=== PATIENT | female | born 1995 | race Caucasian/White ===

== ENCOUNTER 2019-08-13 12:46 | Outpatient (REF) | payer BC, SELFPAY ==
[2019-08-13 22:14] LABS: Calculated LDL 98 mg/dL; Cholesterol 175 mg/dL (50-200); HDL Cholesterol 60 mg/dL (40-60); Triglyceride 86 mg/dL (30-150)
== END 2019-08-13 13:06 ==
LOC: NCHCN 12:46
PROVIDERS: PCP Family Medicine; Visit Provider Registered Nurse
DX: Z00.00 Encounter for general adult medical examination without abnormal findings (principal); E66.3 Overweight
CPT/HCPCS: 80061

== ENCOUNTER 2020-09-01 14:03 | Outpatient (REF) | payer BC, SELFPAY ==
[2020-09-01 22:15] LABS: HCT 43.4 % (36.0-46.0); MCH 30.6 pg (27.0-33.0); MCHC 34.6 % (32.0-36.0); MCV 88.6 fL (80-95); MPV 9.3 fL (8.0-11.0); Platelet Count 370 10^3/uL (130-400); RDW 12.1 % (11.7-14.6); RDW-SD 39.3 fL; WBC 6.48 10^3/uL (4.4-10.8)
[2020-09-01 22:47] LABS: TSH 1.73 uIU/mL (0.36-3.74)
== END 2020-09-01 14:23 ==
LOC: NCHCN 14:03
PROVIDERS: PCP Family Medicine; Visit Provider Registered Nurse
DX: Z83.3 Family history of diabetes mellitus (principal); R00.2 Palpitations; E66.3 Overweight
CPT/HCPCS: 85027; 83036; 84443

== ENCOUNTER 2022-09-06 17:47 | Outpatient (REF) | payer BC, SELFPAY ==
[2022-09-06 20:35] LABS: HCT 43.6 % (36.0-46.0); HGB 14.9 g/dL (11.2-15.7); MCH 30.2 pg (27.0-33.0); MCHC 34.2 % (32.0-36.0); MCV 88 fL (80-95); MPV 8.7 fL (8.0-11.0); Platelet Count 383 10^3/uL (130-400); RBC 4.93 10^6/uL (3.93-5.22); RDW 11.9 % (11.7-14.6); RDW-SD 38.2 fL; WBC 9.72 10^3/uL (4.4-10.8)
[2022-09-06 20:42] LABS: ALT 23 U/L (14-59); AST 18 U/L (15-37); Albumin 4.5 g/dL (3.4-5.0); Alkaline Phosphatase 71 U/L (46-116); Anion Gap 7.4 mmol/L (3-11); BUN 13 mg/dL (7-18); Bilirubin, Total 0.6 mg/dL (0.2-1.0); CO2 29.6 mmol/L (21.0-32.0); CREATININE 0.7 mg/dL (0.55-1.02); Calcium 10.2 mg/dL (8.5-10.1); Chloride 102 mmol/L (98-107); Estimated GFR 119.99 (mL/min/1.73m2); Glucose 84 mg/dL (74-106); Potassium 3.9 mmol/L (3.5-5.1); Sodium 139 mmol/L (136-145); Total Protein 8.1 g/dL (6.4-8.2)
== END 2022-09-06 17:48 | disposition home or self-care (01) ==
LOC: LBN 17:47
PROVIDERS: PCP Family Medicine; Visit Provider Physician Assistant
DX: R10.9 Unspecified abdominal pain (principal)
CPT/HCPCS: 80053; 85027

== ENCOUNTER 2023-07-05 13:15 | Outpatient (REF) | payer BC, SELFPAY ==
[2023-07-05 15:27] LABS: Anion Gap 7.8 mmol/L (3-11); BUN 14 mg/dL (7-18); CO2 28.2 mmol/L (21.0-32.0); CREATININE 0.6 mg/dL (0.55-1.02); Calcium 9.4 mg/dL (8.5-10.1); Calculated LDL 115 mg/dL (<100); Chloride 102 mmol/L (98-107); Cholesterol 191 mg/dL (<200); Estimated GFR 123.76 (mL/min/1.73m2); Glucose 80 mg/dL (74-106); HDL Cholesterol 51 mg/dL (40-60); Potassium 4.4 mmol/L (3.5-5.1); Sodium 138 mmol/L (136-145); TSH (W/Ref FT4) 1.52 uIU/mL (0.36-3.74); Triglyceride 128 mg/dL (<150)
== END 2023-07-05 13:16 | disposition home or self-care (01) ==
LOC: NCHCN 13:15
PROVIDERS: PCP Family Medicine; Visit Provider Family Medicine
DX: R00.2 Palpitations (principal); R53.83 Other fatigue; R79.89 Other specified abnormal findings of blood chemistry
CPT/HCPCS: 80048; 80061; 84443

== ENCOUNTER 2024-08-26 14:05 | Outpatient (REF) | payer BC, SELFPAY ==
--- NOTE | 2024-08-26 08:00 | PAPFT_PTH ---
PATIENT: Herminia Medley LOC: [facility]#:[id number] AGE/SX: 29/F ROOM: RE08/26/[address]: Lilian Berry : 1995 BED: DIS: 08/26/2024 SPEC #: [id number] RECD: 08/26/24 17:47 STATUS: AVILA REQ #: [id number] NABIL: 08/26/24 08:[address]: Lilian Berry DEPT: [facility] Cytology RECD BY: Philomena Dominguez ENTERED: 08/26/24 17:47 SP TYPE: PAPFT OTHR DR: Shanika Alves Tissues: 1 - CX/ENDOCX FOR PAP SMEARS Procedures: PAP THIN PREP/[facility] Screening HPV DNA PROBE Comments: [id number] (HPV 16 & 18/45)
[2024-08-26 15:16] LABS: ESR 9 mm/hr (0-20)
[2024-08-26 15:17] LABS: Abs Immature Grans 0.01 10^3/uL (0.0-0.06); Absolute Basophil Count 0.05 10^3/uL (0.0-0.2); Absolute Eosinophil Count 0.26 10^3/uL (0.0-0.7); Absolute Lymphocyte Count 2.21 10^3/uL (1.2-3.4); Absolute Neutrophil Count 4.33 10^3/uL (1.2-6.7); Basophils % 0.7 %; Eosinophils % 3.6 %; HCT 43.9 % (36.0-46.0); HGB 14.7 g/dL (11.2-15.7); Immature Grans % 0.1 %; Lymphocytes % 30.4 %; MCH 29.9 pg (27.0-33.0); MCHC 33.5 % (32.0-36.0); MCV 89 fL (80-95); MPV 8.9 fL (8.0-11.0); Monocytes % 5.5 %; Neutrophils % 59.7 %; Platelet Count 398 10^3/uL (130-400); RBC 4.92 10^6/uL (3.93-5.22); RDW 12.5 % (11.7-14.6); RDW-SD 41.1 fL; WBC 7.26 10^3/uL (4.4-10.8)
[2024-08-26 15:56] LABS: Anion Gap 10.1 mmol/L (3-11); BUN 13 mg/dL (7-18); CO2 27.9 mmol/L (21.0-32.0); CREATININE 0.7 mg/dL (0.55-1.02); Calcium 9.4 mg/dL (8.5-10.1); Chloride 104 mmol/L (98-107); Estimated GFR 118.51 (mL/min/1.73m2); Glucose 81 mg/dL (74-106); Potassium 4.2 mmol/L (3.5-5.1); Sodium 142 mmol/L (136-145)
[2024-08-26 15:58] LABS: C-Reactive Protein < 0.50 mg/dL (<or=0.5)
[2024-08-26 22:36] LABS: Rheumatoid Factor <8.6 IU/mL (<12.0)
[2024-08-27 10:05] LABS: Cyclic Citrullinated Peptide <2.5 U/mL (<5.0)
[2024-08-27 13:35] LABS: ANA Interpretation Negative (Negative)
== END 2024-08-26 14:06 | disposition home or self-care (01) ==
LOC: NCHCN 14:05
PROVIDERS: PCP Family Medicine; Visit Provider Family Medicine
DX: H15.102 Unspecified episcleritis, left eye (principal); Z12.4 Encounter for screening for malignant neoplasm of cervix
CPT/HCPCS: 80048; 85652; 86200; 88142; 85025; 86038; 86140; 86431; 87624

== ENCOUNTER 2024-11-27 10:19 | Outpatient (CLI) | payer BC, SELFPAY ==
--- NOTE | 2024-11-27 08:30 | DI.RAD_ITS ---
Exam(s) XR WRIST LT COMPLETE EXAM: XR WRIST LT COMPLETE CLINICAL HISTORY: radial wrist pain. TECHNIQUE: 2D digital imaging was performed. COMPARISON: No exams were available for comparison FINDINGS: 3 views No evidence of acute fracture or dislocation nor significant ulnar vary. Bone density normal. No os seous lesions. No erosions. Scaphoid and scapholunate distance are normal. First carpometacarpal j oint appears unremarkable. No abnormal soft tissue calcifications IMPRESSION: No significant radiograph findings on these three views of the left wrist. DATA REPOSITORY: RADIATION DOSE DELIVERED:
== END 2024-11-27 10:20 | disposition home or self-care (01) ==
LOC: DIORS 10:20
PROVIDERS: PCP Family Medicine; Visit Provider Physician Assistant
DX: M25.532 Pain in left wrist (principal)
CPT/HCPCS: 73110

== ENCOUNTER 2024-12-19 00:03 | Outpatient (CLI) | payer BC, SELFPAY ==
--- NOTE | 2024-12-19 07:00 | DI.MRI_ITS ---
Exam(s) MR UPPER JOINT LT WO EXAM: MR UPPER JOINT LT WO CLINICAL HISTORY: lt wrist pain,m25.532,radial styloid tenosynovitis,m65.4. TECHNIQUE: Multiplanar multisequence MRI was performed. COMPARISON: Plain films 27 November 2024 FINDINGS: BONES: There is no fracture or contusion pattern. JOINTS: The radiocarpal joint is unremarkable. The carpal joints are unremarkable. TENDONS: Flexors: Unremarkable. Extensors: There is fluid around the extensor pollicis brevis tendon and adductor pollicis longus ten don. There is some intermediate signal in the extensor pollicis brevis at the level of the radial st yloid, consistent with tendinosis. MUSCLES: Unremarkable. MEDIAN NERVE: Unremarkable on this noncontrast examination. SOFT TISSUES: Unremarkable. LIGAMENTS: Unremarkable. TRIANGULAR FIBROCARTILAGE: Unremarkable. OTHER: IMPRESSION: Tendinosis involving the extensor pollicis brevis tendon near the level of the radial styloid. DATA REPOSITORY:
== END 2024-12-19 00:23 ==
LOC: DI 00:04
PROVIDERS: PCP Family Medicine; Visit Provider Student in an Organized Health Care Education/Training Program
DX: M65.4 Radial styloid tenosynovitis [de Quervain] (principal); M25.532 Pain in left wrist
CPT/HCPCS: 73221

== ENCOUNTER 2025-02-11 13:52 | Day surgery (SDC) | payer BC, SELFPAY ==
[2025-02-11 13:55] VITALS: BP 136/96; PULSE 79; RESP 16; TEMP 36.2; O2SAT 99
[2025-02-11] MEDS: Celecoxib 200 MG CAP 400 MG PO (14:15)
[2025-02-11] MEDS: Acetaminophen 500 MG TAB 1000 MG PO (14:16)
[2025-02-11] MEDS: Lactated Ringers 1,000 ML 80 ML IV (14:29)
--- NOTE | 2025-02-11 14:44 | W.PREOPHP ---
Assessment and Plan Assessment and plan (1) De Quervain's tenosynovitis, left: Status: Acute Assessment and plan: Tanvi is a 30-year-old female who has de Quervain's tenosynovitis by the left side. She has failed nonoperative options and is here today for first extensor compartment release. I reviewed the details of the surgery with her. I discussed the risk to include bleeding, infection, pain, stiffness, continued symptoms, damage to nerves and vessels, damage to muscle tendons, tendon subluxation, need for repeat procedures. Despite these risk, she elects to proceed. History of Present Illness History of Present Illness Chief Complaint: Left DeQuervain's Tenosynovitis Narrative: Tanvi is a 30-year-old female who has ongoing de Quervain's tenosynovitis by the left hand. She is trialed a host of nonoperative options but these have failed and thus she is here today for her first extensor compartment release. She denies any new medical issues. She denies any chest pain or shortness of breath. No recent illness. Review of Systems All systems reviewed & are unremarkable except as noted in HPI and below PFSH All Active Problems De Quervain's tenosynovitis, left (Acute) ADHD (Acute) Episcleritis (Acute) Anxiety disorder (Acute) Medical History Family history of hypertension Family history of diabetes mellitus Major depression Surgical History Hx of wisdom tooth extraction Social History Smoking/Tobacco Use Status: Never Smoking risk assessment performed?: Yes Alcohol Intake: current Alcohol Intake frequency: holidays/special occasions only Drug use: Never Substance use type: does not use Housing: apartment Do you feel safe at home: Yes Do you feel safe in your relationship?: Yes Meds Allergies and Home Medications Allergies Allergy/AdvReac Type Severity Reaction Status Date / Time No Known Allergies Allergy Verified 02/11/25 14:13 Home Medications ?Medication ?Instructions ?Recorded ?Confirmed ?Type dextroamphetamine-amphetamine 5 mg 5 mg PO DAILY 09/23/24 02/11/25 History tablet dextroamphetamine-amphetamine ER 10 mg PO DAILY 09/23/24 02/11/25 History 10 mg 24hr capsule,extend release (Adderall XR) escitalopram oxalate 20 mg tablet 20 mg PO DAILY 09/23/24 02/11/25 History levonorgestrel 21 mcg/24 hr (up to 1 device intrauterine ONCE 09/23/24 02/11/25 History 8 years) 52 mg intrauterine device (Mirena) acetaminophen 500 mg tablet 500 mg PO TID #90 tabs 02/11/25 Rx hydrocodone 5 mg-acetaminophen 325 1 tab PO Q6H PRN pain #4 tabs 02/11/25 Rx mg tablet ibuprofen 600 mg tablet 600 mg PO TID PRN pain #90 tabs 02/11/25 Rx Exam Const General: cooperative, healthy appearing, comfortable and no acute distress Resp Effort & Inspection: normal respiratory effort Auscultation: clear to auscultation bilaterally Cardio Rate: regular rate Rhythm: regular rhythm Results Last Vital Signs Temp 36.2 C L 02/11/25 13:55 Pulse 79 02/11/25 13:55 Resp 16 02/11/25 13:55 BP 136/96 H 02/11/25 13:55 Pulse Ox 99 02/11/25 13:55
--- NOTE | 2025-02-11 15:12 | W.PM.DSUDISC ---
Date of service: 02/11/25 Discharge Plan Disposition Patient Disposition: Home Condition: Good Discharge Details Reason For Visit: De Quervain's Release L Attending Provider: Tomasz Rodriguez Primary Care Provider: Lilian Berry Home Meds and New Rx's Prescriptions: New hydrocodone-acetaminophen 5-325 mg tablet 1 tab PO Q6H PRN (Reason: pain) Qty: 4 0RF acetaminophen 500 mg tablet 500 mg PO TID Qty: 90 0RF ibuprofen 600 mg tablet 600 mg PO TID PRN (Reason: pain) Qty: 90 0RF Continued dextroamphetamine-amphetamine [Adderall XR] 10 mg capsule,extended release 24hr 10 mg PO DAILY dextroamphetamine-amphetamine 5 mg tablet 5 mg PO DAILY escitalopram oxalate 20 mg tablet 20 mg PO DAILY Mirena 21 mcg/24hr (up to 8 yrs) 52 mg intrauterine device 1 device intrauterine ONCE Rx Instructions: as a single dose Discharge Instructions Additional Instructions: Ella's Discharge Instructions Activity: You should keep the hand elevated as much as possible for the first few days. You may use the other fingers as tolerated but avoid trying to do too much too soon. You may perform light activities with the splint in place. Dressing/Cast: Your splint should stay in place at all times. Do NOT get it wet. You may loosen the MILLICENT wrap if you feel it is too tight and then rewrap more loosely. Medications: - You should take Tylenol and Ibuprofen for baseline pain control. - You have Hydrocodone for breakthrough pain. - You may apply ice over the thumb. Follow-up: 7-10 days Referrals: Tomasz Rodriguez MD [ [facility] STAFF PHYSICIAN] - Activity:: Elevate Remove Dressings/Wound Care:: Do Not Remove Shower/Bathe:: Cover Diet:: As Tolerated Discharge Orders Discharge Orders: Discharge Order (Routine); Ordered 02/11/25 Ordered By: David Weston DS: Diagnosis Discharge Diagnosis (1) De Quervain's tenosynovitis, left: Status: Acute
--- NOTE | 2025-02-11 16:36 | W.ANESPRE ---
General Info Date of Service Date Performed: 02/11/25 Height: 5 ft 7 in Weight: 79.4 kg Body Mass Index (BMI): 27.3 Surgical Procedure: Operation Date: 02/11/25 15:55 Proposed Procedure Side Surgeon p Wrist Dequervains Release Left Tomasz Rodriguez MD Meds Allergies and Home Medications Allergies Allergy/AdvReac Type Severity Reaction Status Date / Time No Known Allergies Allergy Verified 02/11/25 14:13 Home Medication ?Medication ?Instructions ?Recorded dextroamphetamine-amphetamine 5 mg 5 mg PO DAILY 09/23/24 tablet dextroamphetamine-amphetamine ER 10 mg PO DAILY 09/23/24 10 mg 24hr capsule,extend release (Adderall XR) escitalopram oxalate 20 mg tablet 20 mg PO DAILY 09/23/24 levonorgestrel 21 mcg/24 hr (up to 1 device intrauterine ONCE 09/23/24 8 years) 52 mg intrauterine device (Mirena) acetaminophen 500 mg tablet 500 mg PO TID #90 tabs 02/11/25 hydrocodone 5 mg-acetaminophen 325 1 tab PO Q6H PRN pain #4 tabs 02/11/25 mg tablet ibuprofen 600 mg tablet 600 mg PO TID PRN pain #90 tabs 02/11/25 Current Visit Medications: Current Medications Generic Name Dose Route Start Last Admin Trade Name Freq PRN Reason Stop Dose Admin Acetaminophen 1,000 mg 02/11/25 06:00 02/11/25 14:16 Acetaminophen 500 Mg Tab PO 02/11/25 23:59 1,000 mg PREOP CORTEZ Administration Acetaminophen 650 mg 02/11/25 15:11 Acetaminophen 325 Mg Tab PO 03/13/25 15:10 Q4H PRN PRN Hydrocodone Bitart/Acetaminophen 0 tab 02/11/25 15:11 Hydrocodone 5/Acetaminophen 325 Tab PO 03/13/25 15:10 Q3H PRN PRN Pain Celecoxib 400 mg 02/11/25 06:00 02/11/25 14:15 Celecoxib 200 Mg Cap PO 02/11/25 23:59 400 mg PREOP CORTEZ Administration Ringer's Solution 1,000 mls @ 80 mls/hr 02/11/25 06:00 02/11/25 14:29 IV 02/11/25 23:59 80 mls/hr INFUSION CORTEZ Administration Cefazolin Sodium/Dextrose 2 gm in 50 mls @ 100 mls/hr 02/11/25 06:00 Ancef Duplex IVPB 02/11/25 23:59 PREOP CORTEZ IV Miscellaneous Supplies 1 each 02/11/25 06:00 Iv Access IV 02/11/25 23:59 DIRECTED CORTEZ Sodium Chloride 0 ml 02/11/25 06:00 Normal Saline Flush 10 Ml Syr IV 02/11/25 23:59 PRN PRN Sodium Chloride 0 ml 02/11/25 06:00 Normal Saline 10 Ml Vial IJ 02/11/25 23:59 DIRECTED PRN Sterile Water 0 ml 02/11/25 06:00 Water,Injection,Sterile 10 Ml Vial IJ 02/11/25 23:59 DIRECTED PRN PFSH Active Problems Active Problems: Problem Status Onset Code De Quervain's tenosynovitis, left Acute M65.4 ADHD Acute F90.9 Episcleritis Acute H15.109 Anxiety disorder Acute F41.9 Medical History Medical History Family history of hypertension Family history of diabetes mellitus Major depression Surgical History Surgical History Hx of wisdom tooth extraction Tobacco Smoking/Tobacco Use Status: Never Alcohol Alcohol Intake: current Alcohol intake frequency: holidays/special occasions only Substance Use Substance use: Never Substance use type: does not use Vital Signs and Lab Results Vital Signs Most Recent Vital Signs in EMR: Most Recent Vital Signs Temp Pulse Resp BP Pulse Ox 36.2 C L 79 16 136/96 H 99 02/11/25 13:55 02/11/25 13:55 02/11/25 13:55 02/11/25 13:55 02/11/25 13:55 Point of Care Results Point of Care Results: POC- Test(urine) Negative 02/11/25 14:13 Lab Results Blood Type / Crossmatch: No Data to Display Complete Blood Count: No Data to Display Complete Metabolic Panel: No Data to Display Liver Function Panel: No Data to Display Coagulation Panel: No Data to Display Cardiac Panel: No Data to Display Arterial Blood Gas: No Data to Display Venous Blood Gas: No Data to Display Pancreas Panel: No Data to Display Thyroid Panel: No Data to Display Infectious Disease: No Data to Display Blood Cultures: No Data to Display Toxicology Panel: No Data to Display Panel: No Data to Display Anesthesia Assessment and Plan Anesthesia History Personal History: No History of Anesthesia Complications Family History: No Family History of Anesthesia Complications Exercise Tolerance Exercise Tolerance: Metabolic Equivalents>4 Pertinent Negatives Pertinent Negatives: No Symptoms of GERD, No Major Cardiovascular Symptoms or Complaints and No Major Pulmonary Symptoms or Complaints Cardiac & Pulmonary Exam Cardiac Exam: Normal S1/S2 Heart Sounds Pulmonary Exam: Clear Bilateral Breath Sounds Implantable Cardiac Device Does patient have a Pacemaker or an ICD?: No Airway Exam Known Difficult Airway: No Mallampati Class: 1 Mouth Opening: Normal (> 3cm) Thyromental Distance: Greater than 3 cm Neck Range of Motion: Full ROM Neck Circumference: Normal Teeth Condition: Normal Dentition ASA Classification ASA Score: ASA 2 Emergency Case?: No NPO Status NPO Status: NPO Clears >2 hours, Solids >8 hours Status Status: Negative HCG Anesthesia Plan Resuscitation Status: Full Code Anesthesia Technique: General Anesthesia Airway Planned: Natural Airway Monitors Used: Standard Monitors
[2025-02-11 16:59] VITALS: BMI 27.3
[2025-02-11] MEDS: ceFAZolin 2 GM/50 ML BAG IVPB (17:03)
[2025-02-11] MEDS: Sodium Bicarbonate 50 MEQ/50 ML VIAL (17:14)
[2025-02-11] MEDS: Lidocaine 1% Pres-Free 30 ML VIAL (17:14)
[2025-02-11 17:42] VITALS: BP 135/93; PULSE 68; RESP 16; TEMP 36; O2SAT 100
--- NOTE | 2025-02-11 18:02 | W.ANESPOSTOP ---
Postoperative Evaluation Date, Time and Location Date Performed: 02/11/25 Time Performed: 17:42 Patient Location: Day Surgery Unit Vital Signs Most Recent Imported Vital Signs: Most Recent Vital Signs Temp Pulse Resp BP Pulse Ox 36 C L 68 16 135/93 H 100 02/11/25 17:42 02/11/25 17:42 02/11/25 17:42 02/11/25 17:42 02/11/25 17:42 Pain Score Most Recent Pain Score: Most Recent Pain Score Pain Level 0 02/11/25 17:42 Assessment Mental Status: Awake (Alert & Oriented to Patient Baseline) Airway and Respiratory Function: Patent airway with normal (patient baseline) respiratory exam Cardiovascular Function: Hemodynamically Stable Hydration Status: Adequately Hydrated Nausea & Vomiting: No Nausea or Vomiting Pain: Pt. Denies Any Pain Peripheral Nerve Block: Patient did not receive a nerve block
[2025-02-11 18:09] VITALS: BP 130/89; PULSE 60; RESP 16; TEMP 36.4; O2SAT 100
--- NOTE | 2025-02-11 18:10 | W.PM.OP ---
Operative Note Operative Note PRE-OP DIAGNOSIS: Left Dequervain's Tenosynovitis POST-OP DIAGNOSIS: same PROCEDURE: Left First Extensor Compartment Release SURGEON: Tomasz Rodriguez ANESTHESIA TYPE: General:No Airway Refer to Anesthesia Record ESTIMATED BLOOD LOSS: 0 PATHOLOGY: none sent TOURNIQUET TIME: 0 COMPLICATIONS: None Patient was transported to: same day Patient's condition: stable Indications: Tanvi is a 30 year old female who has had symptoms of Dequervain's tenosynovitis. Nonoperative treatment options had been trialed. Given their failure, I offered operative intervention. I reviewed the technical details of a first extensor compartment release. I reviewed the risk of the procedure to include bleeding, infection, pain, stiffness, tendon instability, damage to the superficial radial nerve, and complete release. Despite these risks, the patient elected to proceed. Findings: There is significant synovitis and inflammatory tissue seen within the first extensor compartment and around it. There was a tightened first excessive compartment. Procedure Description: Tanvi was greeted in the preoperative holding area. Name and surgical site were confirmed. The history and physical was completed. The consent was reviewed the patient and signed. Tanvi was taken back to the operating room. The patient was placed in the supine position and monitored anesthesia care was initiated. The left arm was then prepped with ChloraPrep and draped in a standard fashion after a nonsterile tourniquet was placed high up onto the arm, but not used. Prophylactic antibiotics in the form of cefazolin were administered. A timeout was performed for safe surgery. The surgical site was drawn on the skin. The planned surgical field was anesthetized with 0.25% bupivacaine with epinephrine. A 2 cm incision was made longitudinally over the radial styloid. The skin was incised only. The deep tissue subcutaneous fat was dissected with a tenotomy scissors trying to protect bridge of the superficial radial nerve. Any branches that were identified were retracted out of the way. There was a significant amount of inflammatory tissue seen in this region. It was quite friable and dissected away from the underlying first extensor compartment. The first compartment extensor tendons were then identified. The distal aspect of the first compartment was identified and the release was started from this point. This release was performed more on the dorsal side to prevent tendon subluxation. The entirety of the first extensor compartment was then released. The slips of the abductor pollicis longus tendon were inspected. They removed to confirm the appropriate motion of the thumb. There is an extensive amount of synovitis seen around these tendons, mostly within the septum between the APL tendons and the EPB tendon. The extensor pollicis brevis tendon was then identified. There was a subcompartment for the extensor pollicis brevis. It was fully released. Traction on the tendon was also used to confirm appropriate extension of the thumb confirming the release of the appropriate tendon. There was also dense synovitis seen around the extensor pollicis brevis tendon. This was resected. The inflammatory tissue within the first sensor compartment and part of the septum between APL and EPB was also resected. The dorsal radial surface of the radius was once again inspected to make sure there is no other sub-compartments or other restrictions to tendon motion. The wound was then thoroughly irrigated. The deep tissue was closed with a 3-0 Vicryl. The skin was closed with a running subjective 4-0 Monocryl. Skin glue was applied. The hand was dressed with 4 x 4's, Kerlex and MILLICENT wrap into a soft thumb spica splint. All counts were correct. Patient was transferred back to same day surgery area in stable condition. Date of Procedure: 02/11/25
== END 2025-02-11 18:45 | disposition home or self-care (01) ==
PROVIDERS: PCP Family Medicine; Visit Provider Student in an Organized Health Care Education/Training Program
PROC: (CPT 25000; principal; 2025-02-11 15:45)
DX: M65.4 Radial styloid tenosynovitis [de Quervain] (principal)
CPT/HCPCS: 25000; 81025; J0690; J1100; J1885; J2003; J2250; J2405; J2704; J3010